=== PATIENT | male | born 1960 | race Caucasian/White ===

== ENCOUNTER 2017-06-26 11:40 | Emergency (ER) | payer BC ==
[2017-06-26 12:15] VITALS: BP 164/105
--- NOTE | 2017-06-26 12:30 | UC ---
Respiratory Complaint HPI - HPI Summary HPI Summary: PT with sore throat, nasal congestion, pnd and cough x 2 weeks. PT states lost voice 4 days ago - coming back. No fever, chills. + fatigue. Pt states coughing wakes him at night. Pt states has taken otc meds with little relief. daughter with pna dx yesterday. decreased appetite no n/v Pt's medications reviewed this visit. - History of Current Complaint Chief Complaint: UCRespiratory Stated Complaint: COUGH Time Seen by Provider: 06/26/17 12:23 - Allergies/Home Medications Allergies/Adverse Reactions: Allergies Allergy/AdvReac Type Severity Reaction Status Date / Time No Known Allergies Allergy Verified 06/26/17 12:14 Home Medications: Home Medications Alprazolam [Xanax Xr] 1 mg PO BID 06/26/17 [History Confirmed 06/26/17] Venlafaxine EXT RELEASE CAP* [Effexor Xr CAP*] 150 mg PO DAILY 06/26/17 [ History Confirmed 06/26/17] PMH/Surg Hx/FS Hx/Imm Hx Previously Healthy: Yes Cardiovascular History: Hypertension Psychological History: Anxiety, Depression - Surgical History Surgical History: Yes Surgery Procedure, Year, and Place: metal pin to L femur at age 18. 1982, silacone disk placed to repair a L orbital fx. - Social History Occupation: Retired Lives: With Family Alcohol Use: Occasionally Substance Use Type: None Smoking Status (MU): Never Smoked Tobacco Review of Systems Constitutional: Negative ENT: Sore Throat, Ear Ache, Nasal Discharge, Sinus Congestion Respiratory: Cough All Other Systems Reviewed And Are Negative: Yes Physical Exam Triage Information Reviewed: Yes Appearance: Well-Appearing, No Pain Distress, Well-Nourished Vital Signs: Initial Vital Signs Temp 97.8 F 06/26/17 12:09 Pulse 75 06/26/17 12:09 Resp 16 06/26/17 12:09 BP 164/105 06/26/17 12:09 Pulse Ox 99 06/26/17 12:09 Vital Signs Reviewed: Yes Eye Exam: Normal Eyes: Positive: Conjunctiva Clear ENT Exam: Normal ENT: Positive: Pharynx normal, Pharyngeal erythema, Nasal congestion, Other - mild fluid left ear. Negative: Tonsillar swelling, Tonsillar exudate Dental Exam: Normal Neck exam: Normal Neck: Positive: Supple, Nontender, No Lymphadenopathy Respiratory Exam: Other - intermittent coarse cough no w/r no accessory muscle use Respiratory: Positive: Chest non-tender, Lungs clear, Normal breath sounds, No respiratory distress, No accessory muscle use Cardiovascular Exam: Normal Cardiovascular: Positive: RRR, No Murmur, Pulses Normal Abdominal Exam: Normal Abdomen Description: Positive: Nontender, No Organomegaly, Soft Bowel Sounds: Positive: Present Musculoskeletal Exam: Normal Musculoskeletal: Positive: Strength Intact Neurological Exam: Normal Neurological: Positive: Alert Psychological Exam: Normal Skin Exam: Normal UC Diagnostic Evaluation - Laboratory O2 Sat by Pulse Oximetry: 99 Respiratory Course/Dx - Course Course Of Treatment: pt with cough, congesiton ear pain, sore throat x 2 weeks. will check cxr. anticipat abx, nasonex, tussionex. hydrate. secretion precaution - Differential Dx/Diagnosis Provider Diagnoses: acute bronchitis Discharge - Discharge Plan Condition: Stable Disposition: HOME Prescriptions: Amoxicillin/Clavulanate TAB* [Augmentin TAB 875*] 875 mg PO BID #14 tab Fluticasone NASAL SPRAY 50MCG* [Flonase NASAL SPRAY 50MCG*] 2 spray BOTH NARES DAILY #1 btl Guaifenesin-Codeine [Codeine/Guaifenesin 100-10 mg/5Ml] 1 damon PO Q6HR PRN #100 damon MDD 20 PRN Reason: Cough Patient Education Materials: Acute Bronchitis (ED) Referrals: No Primary Care Phys,NOPCP [Primary Care Provider] - Additional Instructions: - STay well hydrated. Drink plenty of non-alcoholic, non-caffinated beverages - take antibiotics 2 times a day as prescribed until gone - use nasal spray as prescribed - Okay to use prescription medication as prescribed for coughing. This contains a narcotic. Do not drive, operate machinery or drink alcohol while taking codeine. - After you have been on antibiotics for 2 days - change your toothbrush and your pillowcase. These infections are spread by secrtions - do NOT share eating or drinking utensils - clean items you share with other people such as iphone, computer mouse, TV remote, etc - Alternate ibuprofen (Advil, motrin) 600mg and tylenol eveyry 3 hours for pain or fever. Do NOT take ibuprofen if you are taking Naprosyn - Call your doctor to schedule a follow-up appointment. Call your doctor or return with questions or concerns
--- NOTE | 2017-06-26 13:03 | RAD ---
HISTORY: Cough, productive sputum for COMPARISONS: None VIEWS: 4: Frontal dual-energy and lateral views of the chest. FINDINGS: CARDIOMEDIASTINAL SILHOUETTE: The cardiomediastinal silhouette is normal. KRYSTA: The krysta are normal. PLEURA: The costophrenic angles are sharp. No pleural abnormalities are noted. LUNG PARENCHYMA: The lungs are clear. ABDOMEN: The upper abdomen is clear. There is no subphrenic gas. BONES AND SOFT TISSUES: No bone or soft tissue abnormalities are noted. OTHER: None. IMPRESSION: NO ACTIVE CARDIOPULMONARY DISEASE.
== END 2017-06-26 13:29 | disposition home or self-care (01) ==
LOC: UCEAST 11:40
DX: J20.9 Acute bronchitis, unspecified (principal); I10 Essential (primary) hypertension; F41.9 Anxiety disorder, unspecified; F32.9 Major depressive disorder, single episode, unspecified
CPT/HCPCS: 71020; 99202; G0463

== ENCOUNTER → 2019-07-13 08:18 | Day surgery (SDC) | payer BC ==
[~2019-07-13 08:18] MED LIST: Acetaminophen TAB* 325 MG PO PRN; Buffered Lidocaine 1% SYRIN* 1 ML/SYRINGE INTRADERM ONE; Bupivacaine 0.25% SDV* 30 ML ONE; Lactated Ringers 1000 ML Bag* 1,000 ML IV SCH; Midazolam* 1 MG/ML 2 ML VIAL (2 MG) ONE; Naloxone* 0.4 MG/ML 1 ML VIAL IV PRN; Ondansetron INJ* 2 MG/ML VIAL IV PRN; PROCHLORPERAZINE INJ 5 MG/ML 2 ML VIAL IV PRN; Propofol* 500 MG/50 ML BTL ONE; Sodium Citrate/Citric Acid* 15 ML UDC ONE; Sodium Citrate/Citric Acid* 15 ML UDC PO ONE; ceFAZolin 2 GM PREMIX in ORs 2 GM/50 ML BAG ONE; diPHENhydraMINE IV* 50 MG/ML 1 ml VIAL (BENADRYL) IV PRN; oxyCODONE TAB* 5 MG TAB PO PRN
[2019-07-13 12:38] VITALS: BP 127/85
--- NOTE | 2019-07-14 02:12 | OP ---
OPERATIVE REPORT: DATE OF OPERATION: 07/13/19 - SDS DATE OF : 58 SURGEON: Hung Lyon MD [facility] TECH: EDGARDO Love ANESTHESIOLOGIST: Dr. Monroe. ANESTHESIA: Local MAC. PRE-OP DIAGNOSIS: Left middle finger partial amputation. POST-OP DIAGNOSIS: Left middle finger partial amputation. OPERATIVE PROCEDURE: Left middle finger revision amputation. INDICATIONS: Ed had the injury. I talked to his family about treatment options , risks and benefits. He wanted to proceed with revision amputation. I told him I thought we could save most of the length of the finger but he would lose the nail. ESTIMATED BLOOD LOSS: 2 mL. COMPLICATIONS: None. FINDINGS: See above and below. DESCRIPTION OF PROCEDURE: Mr. Pablo was seen in the preoperative holding area. The correct side, site, and procedure were identified. We came back to the operating room. The arm was prepped and draped in the usual fashion and time- out was performed. A finger tourniquet was used to exsanguinate and provided Tourni- Cot throughout the procedure. I went ahead and freed up the soft tissue around the end of the exposed bone with the [place] blade. I cut back on the superior aspect of the nail folds obliquely at each corner and retracted that proximally. I was able to excise the entirety of the germinal matrix with the [place] blade. The nail was completely ablated. After I removed all the germinal matrix, I went ahead and used the bone cutter to excise the distal aspect of the bone. Once I had done that I was able to bring up the palmar soft tissue and close that to the dorsum of the nail folds that remained with some 4-0 nylon suture. I trimmed the dog-ears and closed everything up very likely. At this point, everything was looking good. Some of that volar pole did not have a layer of epithelium on it but I left it to reepithelialize on its own so I did not have to shorten it anymore. At this point, everything was looking very good. The wound had been irrigated out. The closure was very nice. A soft dressing was applied and he was taken to the recovery room in stable condition. [id number]/[facility] #: [id number] MTDD
== END | disposition home or self-care (01) ==
LOC: OR 08:18
PROVIDERS: ATTEND Orthopaedic Surgery Hand Surgery
DX: S68.123A Partial traumatic metacarpophalangeal amputation of left middle finger, initial encounter (principal); S67.193A Crushing injury of left middle finger, initial encounter; I10 Essential (primary) hypertension; F41.8 Other specified anxiety disorders; W31.89XA Contact with other specified machinery, initial encounter; Y93.89 Activity, other specified; Y92.9 Unspecified place or not applicable
CPT/HCPCS: A9270-GY; J0690; J2250; J2704; J3490